=== PATIENT | male | born 1995 | race Caucasian/White ===

== ENCOUNTER 2019-11-21 05:52 | Emergency (ER) | payer SELFPAY ==
[~2019-11-21] VITALS: Ht 177.8 cm; Wt 72.6 kg
[2019-11-21 05:59] VITALS: BP 118/84
--- NOTE | 2019-11-21 06:00 | NUR ---
PT AAOX4. BIBRA 878 PER RA PT FOUND KNOCKING ON RANDOM PERSON'S HOUSE BELEIVING IT'S HIS HOUSE. PT PALCED IN BED 4 ON MONITOR AND PULSE OX. VSS.
--- NOTE | 2019-11-21 06:23 | NUR ---
Patient discharged to home in stable condition. Written and verbal after care instructions given. Patient verbalizes understanding of instruction. Pt stated he has a house is [employer]. Pt ambulated with steady gait. vss.
== END 2019-11-21 06:24 | disposition home or self-care (01) ==
LOC: ER 05:52
DX: F10.129 Alcohol abuse with intoxication, unspecified (principal); R41.0 Disorientation, unspecified; Y90.9 Presence of alcohol in blood, level not specified